=== PATIENT | male | born 2000 | race Caucasian/White ===

== ENCOUNTER 2021-05-23 16:08 | Emergency (ER) | payer MEDICAID ==
[~2021-05-23] VITALS: Ht 162.6 cm; Wt 73.0 kg
[2021-05-23 16:31] VITALS: BP 126/68
== END 2021-05-23 19:57 | disposition left against medical advice (07) ==
LOC: ER 16:08
DX: Z53.21 Procedure and treatment not carried out due to patient leaving prior to being seen by health care provider (principal); B20 Human immunodeficiency virus [HIV] disease

== ENCOUNTER 2021-11-09 21:08 | Emergency (ER) | payer MEDICAID ==
[~2021-11-09] VITALS: Ht 165.1 cm; Wt 77.0 kg
== END 2021-11-09 22:03 | disposition left against medical advice (07) ==
LOC: ER 21:08
DX: Z53.21 Procedure and treatment not carried out due to patient leaving prior to being seen by health care provider (principal)